=== PATIENT | male | born 1975 | race Caucasian/White ===

== ENCOUNTER 2017-09-07 03:00 | Inpatient (IN) | payer OTHER ==
[~2017-09-07] VITALS: Ht 185.4 cm; Wt 72.0 kg
[2017-09-07] MEDS ORDERED: SODIUM CHLORIDE 0.9% 1000ML 1,000 ML IV STA ×2 (03:06)
[2017-09-07] MEDS ORDERED: LORAZEPAM 2 MG/ML 1 ML VIAL IV STA ×2 (03:22→03:50)
[2017-09-07 03:24] LABS: BASO % 0.5 %; BASO ABS # 0.03 K/uL (0-0.2); EOS % 2.3 %; EOS ABS # 0.15 K/uL (0-0.5); HEMATOCRIT 45.5 % (42-52); HEMOGLOBIN 15.8 g/dL (14.0-18.0); IG# 0.01 K/uL (0.00-0.02); LYMPH % 34.9 %; LYMPH ABS # 2.29 K/uL (1.2-3.4); MEAN CELL VOLUME 92.7 fL (80-100); MEAN CORPUSCULAR HEMOGLOBIN 32.2 pg (25-34); MEAN CORPUSCULAR HGB CONC 34.7 g/dl (32-36); MEAN PLATELET VOLUME 10.3 fL (7.4-10.4); MONO % 9.8 %; MONO ABS # 0.64 K/uL (0.11-0.59); NEUT % 52.3 %; NEUT ABS # 3.44 K/uL (1.4-6.5); PLATELET COUNT 242 K/uL (130-400); RED CELL DISTRIBUTION WIDTH CV 13.1 % (11.5-14.5); RED CELL DISTRIBUTION WIDTH SD 44.7 fL (36.4-46.3); WHITE BLOOD COUNT 6.56 K/uL (4.8-10.8)
--- NOTE | 2017-09-07 03:30 | EMERGENCY ROOM VISIT NOTE ---
History Report prepared by Marilou: Haile Quintana Under the Supervision of: Dr. Julissa Gonzalez M.D. First contact with patient: 03:06 Chief Complaint: OVERDOSE (INTENTIONAL) Stated Complaint: OVERDOSE ON SLEEPING PILLS - TOOK 98 1/2 History of Present Illness The patient is a 41 year old male who presents to the Emergency Room following an overdose prior to arrival, around 2 to 2:30 AM. The patient's significant other states that the patient consumed 98.5 tablets of Benadryl. She reports that she made the patient vomit, but denies seeing any pill fragments. She states that he did not take Tylenol. She notes that the patient told her that he was trying to hurt himself. She reports a history of suicide attempts by the patient and states that she thinks he was an inpatient for psychiatry in the past. She states that this episode was prompted by a realization 3 days ago of something that happened in his past. She states that the patient smokes a pack of cigarettes in a day, has not used marijuana in a while, and occasionally drinks alcohol. Source of History: spouse/significant other History Limited By: AMS Onset: prior to arrival Position: other (global) Symptom Intensity: 98.5 tablets Benadryl Quality: other (overdose) Review of Systems ROS limited due to altered mental status. Past Medical & Surgical Medical Problems: (1) Intentional diphenhydramine overdose limited: fiance reported previous mental health admissions/ suicide attempt Family History Patient reports no known family medical history. Social History Smoking Status: Current Every Day Smoker Marital Status: in relationship Housing Status: lives with significant other Occupation Status: employed Current/Historical Medications Scheduled Sertraline (Zoloft), 100 MG PO DAILY Allergies Coded Allergies: No Known Allergies (Unverified , 09/07/17) Physical Exam Vital Signs Date Time Temp Pulse Resp B/P (MAP) Pulse Ox O2 Delivery O2 Flow Rate FiO2 09/07/17 05:13 83 18 139/93 98 Room Air 09/07/17 04:19 98 18 168/120 98 Room Air 09/07/17 03:43 107 09/07/17 03:03 36.7 137 18 147/99 98 Room Air Physical Exam Vital signs reviewed. General: Awake, seemingly agitated, staring into the distance. HEENT: No scleral icterus, PERRLA, neck supple. Atraumatic. Dilated pupils. Dry MM Cardiovascular: Tachycardic rate and regular rhythm, no extra sounds. Pulmonary: Clear to auscultation bilaterally, normal work of breathing. Abdomen: Soft, nontender, nondistended, positive bowel sounds. Musculoskeletal: Atraumatic, no peripheral edema. Neurologic: Patient awake. Full strength in all 4 extremities. Cranial nerves 2 through 12 grossly intact. unable to focus on complicated discussion. Follows some simple commands. Minimally verbal. Skin: Warm, dry, no rash Medical Decision & Procedures Laboratory Results Test 09/07/17 03:14 09/07/17 04:06 Magnesium Level 2.2 mg/dl (1.8-2.4) Direct Bilirubin 0.1 mg/dl (0-0.2) Thyroid Stimulating Hormone (TSH) 1.880 uIu/ml (0.300-4.500) Salicylates Level 3.1 mg/dl (2.8-20) Acetaminophen Level < 2 ug/ml (10-30) Ethyl Alcohol mg/dL < 3.0 mg/dl (0-3) Urine Color YELLOW Urine Appearance CLEAR (CLEAR) Urine pH 7.5 (4.5-7.5) Urine Specific [place] 1.010 (1.000-1.030) Urine Protein NEG (NEG) Urine Glucose (UA) NEG (NEG) Urine Ketones NEG (NEG) Urine Occult Blood NEG (NEG) Urine Nitrite NEG (NEG) Urine Bilirubin NEG (NEG) Urine Urobilinogen NEG (NEG) Urine Leukocyte Esterase NEG (NEG) Urine Opiates Screen NEG (NEG) Urine Methadone, Qualitative NEG (NEG) Urine Barbiturates NEG (NEG) Urine Phencyclidine (PCP) Level NEG (NEG) Ur Amphetamine/Methamphetamine NEG (NEG) MDMA (Ecstasy) Screen NEG (NEG) Urine Benzodiazepines Screen NEG (NEG) Urine Cocaine Metabolite NEG (NEG) Urine Marijuana (THC) NEG (NEG) Laboratory results per my review. Medications Administered Medications (Trade) Dose Ordered Sig/Elizabeth Route Start Time Stop Time Status Last Admin Dose Admin Sodium Chloride 1,000 ml @ 999 mls/hr Q1H1M STAT IV 09/07/17 03:06 09/07/17 04:06 DC 09/07/17 03:11 999 MLS/HR Sodium Chloride 1,000 ml @ 150 mls/hr Q6H40M STAT IV 09/07/17 03:06 09/07/17 06:30 DC 09/07/17 03:25 150 MLS/HR Lorazepam (Ativan Inj) 2 mg NOW STAT IV 09/07/17 03:22 09/07/17 03:23 DC 09/07/17 03:33 2 MG Lorazepam (Ativan Inj) 2 mg NOW STAT IV 09/07/17 03:50 09/07/17 03:51 DC 09/07/17 04:07 2 MG Lorazepam (Ativan Inj) 2 mg Q30M PRN IV 09/07/17 04:45 09/07/17 06:31 DC 09/07/17 06:30 2 MG ECG Per My Interpretation Indication: other (overdose) Rate (beats per minute): 120 Rhythm: sinus tachycardia Findings: other (ST abnormalities in inferior lateral leads. T wave abnormalities in anterior leads. QRS is 92. QTC is 472.) ED Course 0321: Past medical records reviewed. The patient was evaluated in room A12B. A complete history and physical examination was performed. 0415: I spoke with Dr. Thacker - [facility] Hospitalist. He will reevaluate the patient for admission. 0509: I checked on the patient, who seems to be doing well. 0520: Repeat EKG shows normal sinus rhythm of 82 with QRS of 98 and QTC of 497. No ectopy and no acute ischemic changes. Medical Decision Differential diagnosis: Etiologies such as toxicologic, infection, hypoglycemia, electrolyte abnormalities, cardiac sources, intracerebral event, neurologic, as well as others were entertained. This patient was evaluated and appeared to be in no distress. Patient is able to maintain his airway however is intermittently following commands. IV access was obtained and laboratory work was drawn. Patient was hydrated with normal saline solution. He had typical anticholinergic effects on presentation. Patient was given 2 mg of IV Ativan. Poison control was contacted. They recommended bicarb for prolonged QRS according to nursing staff. Patient remained stable and did improve after IV hydration and as needed Ativan. His laboratory work is fairly unrevealing. EKG remained stable. The patient has admitted to his fiance that this was a suicide attempt. He is not able to answer questions appropriately at this time. Internal medicine was consulted and the patient will be evaluated for telemetry. Medication Reconcilliation Current Medication List: was personally reviewed by me Blood Pressure Screening Patient's blood pressure: Elevated blood pressure Blood pressure disposition: Elevated BP felt to be situational referred to hospitalist Consults Time Called: [phone] Consulting Physician: Dr. Kirstie Matthews [facility] Hospitalist Returned Call: [phone] Kirstie Matthews [facility]. He will reevaluate the patient for admission. Impression Primary Impression: Medication overdose Additional Impression: Suicidal behavior Critical Care I have personally spent greater than 60 minutes of critical care time in the direct management of this patient. This includes bedside care, interpretation of diagnostic studies, and testing, discussion with consultants, patient, and family members, and other required patient management activities. This 60 minutes is in excess of all separately billable procedures. Scribe Attestation The scribe's documentation has been prepared under my direction and personally reviewed by me in its entirety. I confirm that the note above accurately reflects all work, treatment, procedures, and medical decision making performed by me. Departure Information Dispostion Being Evaluated By Hospitalist Referrals No Doctor, Assigned (PCP) Patient Instructions My [facility] Problem Qualifiers
[2017-09-07 03:52] LABS: ALBUMIN 4.3 gm/dl (3.4-5.0); CALCIUM 8.5 mg/dl (8.5-10.1); CREATININE 1.25 mg/dl (0.60-1.40); POTASSIUM 3.3 mmol/L (3.5-5.1); TOTAL PROTEIN 7.6 gm/dl (6.4-8.2)
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
[2017-09-07] MEDS ORDERED: SERT-234 PO (04:35)
[2017-09-07] MEDS ORDERED: ONDANSETRON INJ 2 MG/ML 2 ML VIAL IV PRN (04:45)
[2017-09-07] MEDS: LORAZEPAM 2 MG/ML 1 ML VIAL IV PRN ×4 (05:33→16:07)
[2017-09-07 06:31] VITALS: BP 148/105; PULSE 84; TEMP 36.8; O2SAT 100; Ht 185.4 cm; Wt 72.0 kg
[2017-09-07] MEDS: SODIUM CHLORIDE 0.9% 1000ML 1,000 ML IV SCH ×2 (06:41→16:07)
[2017-09-07 08:01] VITALS: BP_SYST 119; BP_SYST 148; BP_DIAS 71; BP_DIAS 93; PULSE 70; TEMP 36.6; O2SAT 94
--- NOTE | 2017-09-07 08:03 | Family Medicine Progress Note ---
Progress Note Date of Service Sep 07, 2017. Subjective Pt evaluation today including: conversation w/ family, physical exam, chart review, lab review Pain: not able to assess PO Intake: Not eating Patient was not conscious for my examination, although he did briefly sit up and open his eyes. was somewhat responsive to stimuli. Frequent twitching was noted. Spoke with angel, reassured her she did nothing wrong. Found out was not Benadryl overdose but [employer] brand sleep aid come in a blue bottle active ingredient is diphenhydramine Constitutional: No fever, No chills Respiratory: No cough, No sputum, No wheezing, No shortness of breath Cardiovascular: No chest pain Abdomen: No pain Musculoskeletal: No joint pain Psychiatric: + depression symptoms Heme: No abnormal bleeding/bruising Skin: No rash, No itch, No new/changing skin lesions Additional Comments: Angel was the historian Medications Current Inpatient Medications Medications (Trade) Dose Ordered Sig/Elizabeth Route Start Time Stop Time Status Last Admin Dose Admin Enoxaparin Sodium (Lovenox Inj) 40 mg Q24H SC 09/07/17 04:45 10/07/17 04:44 UNV Sodium Chloride 1,000 ml @ 115 mls/hr Q8H42M IV 09/07/17 06:35 10/07/17 06:34 09/07/17 06:41 115 MLS/HR Ondansetron HCl (Zofran Inj) 4 mg Q6H PRN IV 09/07/17 04:45 10/07/17 04:44 Objective Vital Signs Date Time Temp Pulse Resp B/P (MAP) Pulse Ox O2 Delivery O2 Flow Rate FiO2 09/07/17 06:31 36.8 84 20 148/105 100 Room Air 09/07/17 05:47 36.6 80 18 140/90 98 Room Air 09/07/17 05:13 83 18 139/93 98 Room Air 09/07/17 04:19 98 18 168/120 98 Room Air 09/07/17 03:43 107 09/07/17 03:03 36.7 137 18 147/99 98 Room Air Physical Exam General Appearance: + moderate distress (patient would have occasional flailing episodes, However seemed to be regaining consciousness), + thin Neck: supple, no adenopathy, trachea midline Respiratory/Chest: chest non-tender, no respiratory distress, no accessory muscle use Cardiovascular: regular rate, rhythm, no edema, no gallop, no JVD, no murmur Abdomen: normal bowel sounds, soft, no organomegaly, no pulsatile mass, + tenderness (in the lower quadrents b/l winced during the exam) Extremities: no pedal edema Neurologic/Psychiatric: + pertinent finding (Seems to be returning to consciousness) Skin: normal color, warm/dry, no rash Lymphatic: no adenopathy Laboratory Results Last Resulted 09/07/17 03:14 Red Blood Count 4.91, Mean Corpuscular Volume 92.7, Mean Corpuscular Hemoglobin 32.2, Mean Corpuscular Hemoglobin Concent 34.7, Mean Platelet Volume 10.3, Neutrophils (%) (Auto) 52.3, Lymphocytes (%) (Auto) 34.9, Monocytes (%) (Auto) 9.8, Eosinophils (%) (Auto) 2.3, Basophils (%) (Auto) 0.5, Neutrophils # (Auto) 3.44, Lymphocytes # (Auto) 2.29, Monocytes # (Auto) 0.64, Eosinophils # (Auto) 0.15, Basophils # (Auto) 0.03 Last Resulted 09/07/17 03:14 Past 24 Hours Test 09/07/17 07:01 Range/Units Prothromb Time International Ratio 1.0 0.9-1.1 Prothrombin Time 10.9 9.0-12.0 SECONDS Assessment and Plan 41 yo M w/ PMHx of PTSD on Zoloft following with psychiatrist, therapy, p/w Intentional Overdose of 98.5 Diphenhydramine pills arriving tachycardic , in acute delirium Intentional Diphendydramine overdose, Acute Delirium, H/o PTSD - anticholinergic poisoning secondary to diphenhydramine overdose ( 98.5 pills) - s/p 2 L IV NS in ED - s/p 2mg Ativan x 2 ( recommended by Poison Control) - no seizure activity , maintaining airway, appears to be retuning to consciousness - HOLD home SSRI - Start IV NS at 100 mls/hr - Q2H Neuro checks - followup Psychiatry - F/U with poison control - Telemetry: NSR 70-80 DVT PPX: Lovenox Disp: Admit to Tele, D/C when better Home vs. inpatient psych, appreciate psych input Code: FULL Resident Physician Supervision Note: I interviewed and examined the patient. Discussed with Dr. Covington and agree with findings and plan as documented in the note. Any exceptions or clarifications are listed here: None Documented By: Kilo Betancourt moving more but still confused and moving randomly fiance does note he is doing better than before QT improved vitals noted, random movements but does speak some diphenhydramine OD -QT improved -ativan per poison control, supportive care -inpt psych once mental status allows -otherwise as above Continued [facility] stay due to: abnormal vital signs Discharge planning: other (Home vs. Inpatient psych ) Resident Tracking Resident Involvement: Resident Care Provided Care Provided: Adult Hospital Medicine
[2017-09-07] MEDS: ENOXAPARIN 40 MG/0.4 ML SYR SC SCH (09:45)
--- NOTE | 2017-09-07 11:55 | Psychiatric Consultation ---
Psychiatric Consultation Date of Service: Sep 07, 2017. Patient admitted following an intentional toxic ingestion of benadryl in a suicide attempt. Patient experiencing an anticholinergic delirium and not yet appropriate to be interviewed. We will attempt tomorrow. The patient should not be allowed to leave the hospital AMA, as he will be 302'd if not willing to receive voluntary inpatient mental health treatment.
[2017-09-07 12:18] VITALS: BP 139/87; PULSE 74; TEMP 36.5; O2SAT 93
[2017-09-07] MEDS ORDERED: POTASSIUM CHLORIDE 20 MEQ TABCR PO STA (15:33)
[2017-09-07] MEDS ORDERED: LORAZEPAM 2 MG/ML 1 ML VIAL IV PRN (16:00)
[2017-09-07 16:41] VITALS: BP 155/98; PULSE 71; TEMP 36.8; O2SAT 98
[2017-09-07] MEDS ORDERED: LORAZEPAM INJ 2 MG in SYRINGE 1 ML IV PRN (16:45)
[2017-09-07] MEDS: POTASSIUM CHLR 10 MEQ / WTR 100 ML IV SCH ×2 (17:27→18:19)
[2017-09-07 19:14] VITALS: BP 150/93; PULSE 63; TEMP 36.7; O2SAT 95
[2017-09-08] VITALS (7 sets, daily range): BP systolic 121–147; BP diastolic 74–87; PULSE 53–83; TEMP 36.5–37.1; O2SAT 97–99
[2017-09-08] MEDS: SODIUM CHLORIDE 0.9% 1000ML 1,000 ML IV SCH ×3 (00:15→20:12)
[2017-09-08 07:29] LABS: BASO % 0.2 %; BASO ABS # 0.01 K/uL (0-0.2); EOS % 2.8 %; EOS ABS # 0.14 K/uL (0-0.5); HEMOGLOBIN 15.4 g/dL (14.0-18.0); IG# 0.02 K/uL (0.00-0.02); LYMPH % 33.7 %; LYMPH ABS # 1.67 K/uL (1.2-3.4); MEAN CELL VOLUME 94.1 fL (80-100); MEAN CORPUSCULAR HEMOGLOBIN 32.2 pg (25-34); MEAN CORPUSCULAR HGB CONC 34.2 g/dl (32-36); MEAN PLATELET VOLUME 10.6 fL (7.4-10.4); MONO % 10.5 %; MONO ABS # 0.52 K/uL (0.11-0.59); NEUT % 52.4 %; NEUT ABS # 2.59 K/uL (1.4-6.5); PLATELET COUNT 217 K/uL (130-400); RED CELL DISTRIBUTION WIDTH CV 13.3 % (11.5-14.5); WHITE BLOOD COUNT 4.95 K/uL (4.8-10.8)
[2017-09-08 08:07] LABS: ALBUMIN 4.1 gm/dl (3.4-5.0); CALCIUM 8.8 mg/dl (8.5-10.1); CREATININE 1.07 mg/dl (0.60-1.40); TOTAL PROTEIN 6.6 gm/dl (6.4-8.2)
[2017-09-08] MEDS: ENOXAPARIN 40 MG/0.4 ML SYR SC SCH (08:14)
[2017-09-08] MEDS: NICOTINE 21 MG/24 HR TDSY TD SCH ×2 (08:14→08:16)
--- NOTE | 2017-09-08 08:26 | Family Medicine Progress Note ---
Progress Note Date of Service Sep 08, 2017. Subjective Pt evaluation today including: conversation w/ family Pain: unable to assess PO Intake: tolerating Patient was sleeping during the interview. Angel was the historian. No complaints overnight, had a bm. Refused nicotine patch. Additional Comments: Pt angel was historian Medications Current Inpatient Medications Medications (Trade) Dose Ordered Sig/Elizabeth Route Start Time Stop Time Status Last Admin Dose Admin Enoxaparin Sodium (Lovenox Inj) 40 mg Q24H SC 09/07/17 09:00 10/07/17 08:59 09/08/17 08:14 40 MG Sodium Chloride 1,000 ml @ 115 mls/hr Q8H42M IV 09/07/17 06:35 10/07/17 06:34 09/08/17 08:13 115 MLS/HR Ondansetron HCl (Zofran Inj) 4 mg Q6H PRN IV 09/07/17 04:45 10/07/17 04:44 Nicotine (Nicoderm Cq 21MG Patch) 1 patch QAM TD 09/08/17 09:00 10/08/17 08:59 Miscellaneous (Remove Nicoderm Patch) 1 ea HS N/A 09/07/17 21:00 10/07/17 20:59 Lorazepam (Ativan Inj) 2 mg Q4H PRN IV 09/07/17 16:00 09/11/17 16:00 09/07/17 18:18 2 MG Lorazepam 2 mg/ Syringe 2 ml @ 1 mls/min Q4H PRN IV 09/07/17 16:45 10/07/17 16:44 Objective Vital Signs Date Time Temp Pulse Resp B/P (MAP) Pulse Ox O2 Delivery O2 Flow Rate FiO2 09/08/17 07:18 36.7 54 18 128/80 (96) 98 Room Air 09/08/17 03:09 36.5 53 18 147/87 (107) 99 Room Air 09/07/17 20:00 Room Air 09/07/17 19:14 36.7 63 18 150/93 (112) 95 Room Air 09/07/17 16:41 36.8 71 18 155/98 (117) 98 Room Air 09/07/17 12:18 36.5 74 16 139/87 (104) 93 Physical Exam General Appearance: WD/WN, no apparent distress Neurologic/Psychiatric: + pertinent finding (sleepling chroeaiform movements have subsided) Skin: normal color Laboratory Results Last Resulted 09/08/17 06:55 Red Blood Count 4.78, Mean Corpuscular Volume 94.1, Mean Corpuscular Hemoglobin 32.2, Mean Corpuscular Hemoglobin Concent 34.2, Mean Platelet Volume 10.6, Neutrophils (%) (Auto) 52.4, Lymphocytes (%) (Auto) 33.7, Monocytes (%) (Auto) 10.5, Eosinophils (%) (Auto) 2.8, Basophils (%) (Auto) 0.2, Neutrophils # (Auto ) 2.59, Lymphocytes # (Auto) 1.67, Monocytes # (Auto) 0.52, Eosinophils # (Auto ) 0.14, Basophils # (Auto) 0.01 Last Resulted 09/08/17 06:55 Results Past 24 Hours Test 09/08/17 06:55 Range/Units White Blood Count 4.95 4.8-10.8 K/uL Red Blood Count 4.78 4.7-6.1 M/uL Hemoglobin 15.4 14.0-18.0 g/dL Hematocrit 45.0 42-52 % Mean Corpuscular Volume 94.1 80-100 fL Mean Corpuscular Hemoglobin 32.2 25-34 pg Mean Corpuscular Hemoglobin Concent 34.2 32-36 g/dl Platelet Count 217 130-400 K/uL Mean Platelet Volume 10.6 7.4-10.4 fL Neutrophils (%) (Auto) 52.4 % Lymphocytes (%) (Auto) 33.7 % Monocytes (%) (Auto) 10.5 % Eosinophils (%) (Auto) 2.8 % Basophils (%) (Auto) 0.2 % Neutrophils # (Auto) 2.59 1.4-6.5 K/uL Lymphocytes # (Auto) 1.67 1.2-3.4 K/uL Monocytes # (Auto) 0.52 0.11-0.59 K/uL Eosinophils # (Auto) 0.14 0-0.5 K/uL Basophils # (Auto) 0.01 0-0.2 K/uL RDW Standard Deviation 46.0 36.4-46.3 fL RDW Coefficient of Variation 13.3 11.5-14.5 % Immature Granulocyte % (Auto) 0.4 % Immature Granulocyte # (Auto) 0.02 0.00-0.02 K/uL Sodium Level 139 136-145 mmol/L Potassium Level 4.0 3.5-5.1 mmol/L Chloride Level 108 98-107 mmol/L Carbon Dioxide Level 26 21-32 mmol/L Anion Gap 5.0 3-11 mmol/L Blood Urea Nitrogen 10 7-18 mg/dl Creatinine 1.07 0.60-1.40 mg/dl Est Creatinine Clear Calc Drug Dose 91.6 ml/min Estimated GFR () 98.7 Estimated GFR (Non- 85.2 BUN/Creatinine Ratio 9.1 10-20 Random Glucose 75 70-99 mg/dl Calcium Level 8.8 8.5-10.1 mg/dl Total Bilirubin 0.8 0.2-1 mg/dl Aspartate Amino Transf (AST/SGOT) 14 15-37 U/L Alanine Aminotransferase (ALT/SGPT) 17 12-78 U/L Alkaline Phosphatase 43 45-117 U/L Total Protein 6.6 6.4-8.2 gm/dl Albumin 4.1 3.4-5.0 gm/dl Globulin 2.5 2.5-4.0 gm/dl Albumin/Globulin Ratio 1.7 0.9-2 Assessment and Plan 41 yo M w/ PMHx of PTSD on Zoloft following with psychiatrist, therapy, p/w Intentional Overdose of 98.5 Diphenhydramine pills arriving tachycardic , in acute delirium Intentional Diphendydramine overdose, Acute Delirium, H/o PTSD - anticholinergic poisoning secondary to diphenhydramine overdose ( 98.5 pills) - Lorzapam prn per poison control - no seizure activity , maintaining airway, appears to be retuning to consciousness - HOLD home SSRI - Start IV NS at 100 mls/hr - Q2H Neuro checks - Psychiatry following -Monitor pt condition, patients with an AC overdose may end up on a ventilator on day 3 - F/U with poison control - Telemetry: NSR 70-80 - QTc improved - Pt should not be permitted to leave the facility under any circumstances. - Call security if patient attempting to leave; psychiatric liaison nurse can also be of assistance DVT PPX: Lovenox Disp: Admit to Tele, D/C to inpatient psych Code: FULL Resident Physician Supervision Note: I interviewed and examined the patient. Discussed with Dr. Covington and agree with findings and plan as documented in the note. Any exceptions or clarifications are listed here: None Documented By: Kilo Betancourt sleeping and still poor mentation when i saw this AM apparently waking more through the day vitals noted nad breathing unlabored benadryl OD -concern high for SI -QT shortened -awaiting mental status and motor function improvement to be safe for inpt psych otherwise as above Continued [facility] stay due to: other (302 by psych) Discharge planning: other (Inpatient Psych) Resident Tracking Resident Involvement: Resident Care Provided Care Provided: Adult Hospital Medicine
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
[2017-09-09 03:11] VITALS: BP 115/69; PULSE 60; TEMP 36.9; O2SAT 99
[2017-09-09] MEDS: SODIUM CHLORIDE 0.9% 1000ML 1,000 ML IV SCH ×4 (04:50→21:59)
[2017-09-09 05:47] LABS: BASO % 0.3 %; BASO ABS # 0.02 K/uL (0-0.2); EOS ABS # 0.13 K/uL (0-0.5); HEMATOCRIT 43.5 % (42-52); HEMOGLOBIN 14.8 g/dL (14.0-18.0); IG# 0.02 K/uL (0.00-0.02); LYMPH % 27.8 %; LYMPH ABS # 1.81 K/uL (1.2-3.4); MEAN CELL VOLUME 93.1 fL (80-100); MEAN CORPUSCULAR HEMOGLOBIN 31.7 pg (25-34); MEAN PLATELET VOLUME 10.5 fL (7.4-10.4); MONO % 8.6 %; MONO ABS # 0.56 K/uL (0.11-0.59); NEUT ABS # 3.97 K/uL (1.4-6.5); PLATELET COUNT 208 K/uL (130-400); RED CELL DISTRIBUTION WIDTH SD 44.1 fL (36.4-46.3); WHITE BLOOD COUNT 6.51 K/uL (4.8-10.8)
[2017-09-09 06:14] LABS: ALBUMIN 3.8 gm/dl (3.4-5.0); CREATININE 1.29 mg/dl (0.60-1.40); TOTAL PROTEIN 6.5 gm/dl (6.4-8.2)
--- NOTE | 2017-09-09 07:16 | Family Medicine Progress Note ---
Progress Note Date of Service Sep 09, 2017. Subjective Pt evaluation today including: conversation w/ patient Pain: 0/10 PO Intake: tolerating Voiding: no voiding problems Patient has regained consciousness questioning about dipo planning Additional Comments: Deferred Medications Current Inpatient Medications Medications (Trade) Dose Ordered Sig/Eilzabeth Route Start Time Stop Time Status Last Admin Dose Admin Enoxaparin Sodium (Lovenox Inj) 40 mg Q24H SC 09/07/17 09:00 10/07/17 08:59 09/08/17 08:14 40 MG Sodium Chloride 1,000 ml @ 115 mls/hr Q8H42M IV 09/07/17 06:35 10/07/17 06:34 09/09/17 04:50 115 MLS/HR Ondansetron HCl (Zofran Inj) 4 mg Q6H PRN IV 09/07/17 04:45 10/07/17 04:44 Nicotine (Nicoderm Cq 21MG Patch) 1 patch QAM TD 09/08/17 09:00 10/08/17 08:59 Miscellaneous (Remove Nicoderm Patch) 1 ea HS N/A 09/07/17 21:00 10/07/17 20:59 Lorazepam (Ativan Inj) 2 mg Q4H PRN IV 09/07/17 16:00 09/11/17 16:00 09/07/17 18:18 2 MG Lorazepam 2 mg/ Syringe 2 ml @ 1 mls/min Q4H PRN IV 09/07/17 16:45 10/07/17 16:44 Objective Vital Signs Date Time Temp Pulse Resp B/P (MAP) Pulse Ox O2 Delivery O2 Flow Rate FiO2 09/09/17 03:11 36.9 60 18 115/69 (84) 99 Room Air 09/08/17 23:15 99 Room Air 09/08/17 23:05 37.1 77 18 138/86 (103) 99 Room Air 09/08/17 19:35 37.1 83 20 122/81 (95) 98 Room Air 09/08/17 16:00 Room Air 09/08/17 15:43 37.1 66 18 121/74 (90) 97 Room Air 09/08/17 11:04 37.0 58 16 139/78 (98) 98 Room Air 09/08/17 07:18 36.7 54 18 128/80 (96) 98 Room Air Physical Exam Notes: Deferred Laboratory Results Results Past 24 Hours Test 09/09/17 05:19 Range/Units White Blood Count 6.51 4.8-10.8 K/uL Red Blood Count 4.67 4.7-6.1 M/uL Hemoglobin 14.8 14.0-18.0 g/dL Hematocrit 43.5 42-52 % Mean Corpuscular Volume 93.1 80-100 fL Mean Corpuscular Hemoglobin 31.7 25-34 pg Mean Corpuscular Hemoglobin Concent 34.0 32-36 g/dl Platelet Count 208 130-400 K/uL Mean Platelet Volume 10.5 7.4-10.4 fL Neutrophils (%) (Auto) 61.0 % Lymphocytes (%) (Auto) 27.8 % Monocytes (%) (Auto) 8.6 % Eosinophils (%) (Auto) 2.0 % Basophils (%) (Auto) 0.3 % Neutrophils # (Auto) 3.97 1.4-6.5 K/uL Lymphocytes # (Auto) 1.81 1.2-3.4 K/uL Monocytes # (Auto) 0.56 0.11-0.59 K/uL Eosinophils # (Auto) 0.13 0-0.5 K/uL Basophils # (Auto) 0.02 0-0.2 K/uL RDW Standard Deviation 44.1 36.4-46.3 fL RDW Coefficient of Variation 13.0 11.5-14.5 % Immature Granulocyte % (Auto) 0.3 % Immature Granulocyte # (Auto) 0.02 0.00-0.02 K/uL Sodium Level 141 136-145 mmol/L Potassium Level 4.0 3.5-5.1 mmol/L Chloride Level 109 98-107 mmol/L Carbon Dioxide Level 28 21-32 mmol/L Anion Gap 4.0 3-11 mmol/L Creatinine 1.29 0.60-1.40 mg/dl Est Creatinine Clear Calc Drug Dose 76.0 ml/min Estimated GFR () 78.7 Estimated GFR (Non- 67.9 BUN/Creatinine Ratio 13.0 10-20 Random Glucose 83 70-99 mg/dl Calcium Level 8.0 8.5-10.1 mg/dl Total Bilirubin 0.6 0.2-1 mg/dl Aspartate Amino Transf (AST/SGOT) 10 15-37 U/L Alanine Aminotransferase (ALT/SGPT) 17 12-78 U/L Alkaline Phosphatase 48 45-117 U/L Total Protein 6.5 6.4-8.2 gm/dl Albumin 3.8 3.4-5.0 gm/dl Globulin 2.7 2.5-4.0 gm/dl Albumin/Globulin Ratio 1.4 0.9-2 Assessment and Plan 41 yo M w/ PMHx of PTSD on Zoloft following with psychiatrist, therapy, p/w Intentional Overdose of 98.5 Diphenhydramine pills arriving tachycardic , in acute delirium Intentional Diphendydramine overdose, Acute Delirium, H/o PTSD - anticholinergic poisoning secondary to diphenhydramine overdose ( 98.5 pills) - Lorzapam prn per poison control - no seizure activity , maintaining airway, conscious again - HOLD home SSRI - Start IV NS at 100 mls/hr - On 1 to 1 - Psychiatry following -Monitor pt condition, patients with an AC overdose may end up on a ventilator on day 3 - Telemetry: NSR 70-80 - QTc improved - Aweaitng Placement - Pt should not be permitted to leave the facility under any circumstances. - Call security if patient attempting to leave; psychiatric liaison nurse can also be of assistance DVT PPX: Lovenox Disp: Admit to Tele, D/C to inpatient psych Code: FULL Continued [facility] stay due to: other (awaiting placement) Discharge planning: other (inpatient Psych) Resident Tracking Resident Involvement: Resident Care Provided Care Provided: Adult Hospital Medicine
[2017-09-09] MEDS: NICOTINE 21 MG/24 HR TDSY TD SCH (07:22)
[2017-09-09] MEDS: ENOXAPARIN 40 MG/0.4 ML SYR SC SCH (07:22)
[2017-09-09 07:38] VITALS: BP 127/81; PULSE 66; TEMP 36.8; O2SAT 98
[2017-09-09 11:01] VITALS: BP 127/73; PULSE 84; TEMP 37; O2SAT 98
[2017-09-09 15:17] VITALS: BP 146/80; PULSE 69; TEMP 37; O2SAT 98
[2017-09-09 18:49] VITALS: BP 127/78; PULSE 60; TEMP 37; O2SAT 98
--- NOTE | 2017-09-09 18:56 | Discharge Instructions ---
Discharge Instructions Date of Service Sep 09, 2017. Admission Reason for Admission: Intentional Diphenhydramine Overdose Discharge Discharge Diagnosis / Problem: Diphenhydramine Discharge Goals Goal(s): Improve function Activity Recommendations Activity Limitations: resume your previous activity . Instructions / Follow-Up Instructions / Follow-Up Care per psych 1 yo M w/ PMHx of PTSD on Zoloft following with psychiatrist, therapy, p/w Intentional Overdose of 98.5 Diphenhydramine pills arriving tachycardic , in acute delirium Intentional Diphendydramine overdose, Acute Delirium, H/o PTSD - anticholinergic poisoning secondary to diphenhydramine overdose ( 98.5 pills) - Lorzapam prn per poison control - no seizure activity , maintaining airway, conscious again - HOLD home SSRI - Start IV NS at 100 mls/hr - On 1 to 1 - Psychiatry following -Monitor pt condition, patients with an AC overdose may end up on a ventilator on day 3 - Telemetry: NSR 70-80 - QTc improved - Aweaitng Placement - Pt should not be permitted to leave the facility under any circumstances. - Call security if patient attempting to leave; psychiatric liaison nurse can also be of assistance DVT PPX: Lovenox Disp: Admit to Tele, D/C to inpatient psych Code: FULL Current Hospital Diet Patient's current hospital diet: Regular Diet Discharge Diet Recommended Diet: Regular Diet Pending Studies Studies pending at discharge: no Medical Emergencies . Who to Call and When: Medical Emergencies: If at any time you feel your situation is an emergency, please call 911 immediately. . Non-Emergent Contact Non-Emergency issues call your: Primary Care Provider . . "Provider Documentation" section prepared by Jose Covington. . Resident Tracking Resident Involvement: Resident Care Provided Care Provided: Adult Hospital Medicine
[2017-09-09 20:00] VITALS: O2SAT 98
--- NOTE | 2017-09-10 18:32 | Discharge Summary ---
Discharge Summary Date of Service Sep 10, 2017. Discharge Summary Admission Date: Sep 07, 2017 at 05:25 Discharge Date: Sep 09, 2017 Discharge Disposition: Acute care mental health Principal Diagnosis: acute benadryl overdose Immunizations: Have You Had Influenza Vaccine: Unknown History of Tetanus Vaccine?: Unknown History of Pneumococcal: Unknown History of Hepatitis B Vaccine: Unknown Procedures: EKGs - QT progressively shortened back to normal Consultations: psych - recommended 302 for ongoing inpt psych treatment Medication Reconciliation Continued Medications: Sertraline (Zoloft) 100 Mg Tab 100 MG PO DAILY, TAB Discharge Exam Physical Exam: General Appearance: no apparent distress Eyes: EOMI ENT: hearing grossly normal Neck: trachea midline Respiratory/Chest: no respiratory distress, no accessory muscle use Extremities: normal inspection Neurologic/Psychiatric: 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 Discharge Instructions Please refer to the electronic Patient Visit Report (Discharge Instructions) for additional information.
== END 2017-09-09 23:37 | DRG 918 ==
LOC: C.EDB 03:01 → C.2T 05:25 → ENRESERV 05:35 → EDBEDREQ 06:03
PROVIDERS: ADMIT Hospitalist; ATTEND Family Medicine
DX: T45.0X2A Poisoning by antiallergic and antiemetic drugs, intentional self-harm, initial encounter (principal); F19.921 Other psychoactive substance use, unspecified with intoxication with delirium; R44.3 Hallucinations, unspecified; R25.9 Unspecified abnormal involuntary movements; F43.10 Post-traumatic stress disorder, unspecified; F17.210 Nicotine dependence, cigarettes, uncomplicated; Z51.81 Encounter for therapeutic drug level monitoring; Z79.899 Other long term (current) drug therapy; Z82.49 Family history of ischemic heart disease and other diseases of the circulatory system

== ENCOUNTER 2019-01-12 01:54 | Inpatient (IN) ==
[2019-01-12] MEDS: SODIUM CHLORIDE 0.9% 1000ML 1,000 ML IV SCH ×4 (02:30→22:42)
[2019-01-12 02:39] LABS: Basophils # (auto) 0.01 K/uL (0-0.2); Basophils % (auto) 0.1 %; Eosinophils # (auto) 0.02 K/uL (0-0.5); Eosinophils % (auto) 0.2 %; Hemoglobin 15.1 g/dL (14.0-18.0); Immature Granulocytes # (auto) 0.02 K/uL (0.00-0.02); Immature Granulocytes % (auto) 0.2 %; Lymphocytes # (auto) 1.12 K/uL (1.2-3.4); Lymphocytes % (auto) 9.7 %; Mean Corpuscular Hemoglobin 32.1 pg (25-34); Mean Corpuscular Hgb Conc 34.3 g/dL (32-36); Mean Corpuscular Volume 93.4 fL (80-100); Mean Platelet Volume 10.4 fL (7.4-10.4); Monocytes # (auto) 0.81 K/uL (0.11-0.59); Neutrophils # (auto) 9.58 K/uL (1.4-6.5); Neutrophils % (auto) 82.8 %; Platelet Count 193 K/uL (130-400); RDW Coefficient of Variation 13.6 % (11.5-14.5); RDW Standard Deviation 46.7 fL (36.4-46.3); Red Blood Count 4.71 M/uL (4.7-6.1); White Blood Count 11.56 K/uL (4.8-10.8)
[2019-01-12 02:58] LABS: Alanine Aminotransferase 18 U/L (12-78); Albumin Level 4.2 gm/dl (3.4-5.0); Aspartate Aminotransferase 25 U/L (15-37); BUN Creatinine Ratio 14.6 (10-20); Blood Urea Nitrogen 18 mg/dl (7-18); Calcium 9.1 mg/dl (8.5-10.1); Carbon Dioxide 29 mmol/L (21-32); Chloride 109 mmol/L (98-107); Est GFR (African American) 80.7; Est GFR (Non-African American) 69.6; Glucose 129 mg/dl (70-99); Lipase 152 U/L (73-393); Magnesium 2.1 mg/dl (1.8-2.4); Potassium 3.8 mmol/L (3.5-5.1); Sodium 143 mmol/L (136-145)
[2019-01-12 03:09] LABS: Albumin Globulin Ratio 1.4 (0.9-2); Alkaline Phosphatase 57 U/L (45-117); Bilirubin,Total 0.7 mg/dl (0.2-1); Globulin 3.1 gm/dl (2.5-4.0); NT Pro B Type Natriuretic Pept 19 pg/ml (0-450); Thyroid Stimulating Hormone 0.777 uIu/ml (0.300-4.500); Total Protein 7.3 gm/dl (6.4-8.2); Troponin I < 0.015 ng/ml (0-0.045)
[2019-01-12 03:47] LABS: Lyme Ab IgG w/WB Rflx Negative (Negative); Lyme Ab IgM w/WB Rflx Negative (Negative)
[2019-01-12 04:06] LABS: Appearance Urine Turbid (Clear); Bacteria Urine Automated Negative (Negative); Bilirubin Urine Negative (Negative); Blood Urine Negative (Negative); Color Urine Dark Yellow; Epithelial Cell Urine Auto >30 /lpf (0-5); Glucose Urine UA Negative (Negative); Ketones Urine Trace (Negative); Leukocyte Esterase Urine Negative (Negative); Nitrite Urine Negative (Negative); Protein Urine 2+ (Negative); RBC Urine Automated 0-4 /hpf (0-4); Specific Gravity Urine 1.025 (1.000-1.030); Urobilinogen Urine Negative (Negative)
[2019-01-12 04:22] LABS: Amphetamines+Metham, Urine Neg (Neg); Barbiturates, Urine Neg (Neg); Benzodiazepine, Urine Pos (Neg); Cocaine, Urine Neg (Neg); MDMA (Ecstacy), Urine Neg (Neg); Methadone, Urine Neg (Neg); Opiate, Urine Neg (Neg); Phencyclidine, Urine Neg (Neg)
[2019-01-12] MEDS ORDERED: SODIUM CHLORIDE 0.9% 1000ML 1,000 ML IV SCH (06:15)
--- NOTE | 2019-01-12 06:32 | XRay Report ---
XR chest 1V portable CLINICAL HISTORY: confusion mental status change COMPARISON STUDY: No previous studies for comparison. FINDINGS: The bones soft tissues and hemidiaphragms are normal. The cardiomediastinal silhouette is n ormal. The lungs are clear. The pulmonary vasculature is normal. IMPRESSION: Negative chest. The above report was generated using voice recognition software. It may contain grammatical, syntax or spelling errors. Electronically signed by: Cuba Allred M.D. 01/12/2019 6:31 AM
--- NOTE | 2019-01-12 08:06 | Emergency Department Note ---
Entered by Shahana Ng acting as a scribe for Ann Cam DO History of Present Illness General Chief complaint: Illness Stated complaint: ILL, SHAKY, NYSTAGMUS Time Seen by Provider: 01/12/19 01:59 Source: patient Mode of arrival: EMS History of Present Illness Onset (ago): hour(s) less than 1 Pain Consistency: + constant Relieved By: + none Exacerbated By: + medication Associated symptoms: + denies other symptoms (denies body aches), + confusion, + nausea/vomiting (negative vomiting) and + other (dizziness, shakiness, ) Treatments prior to arrival: none The patient is a 43 year old male who presents to the Emergency Room with complaints of confusion and shakiness after restarting medication. Via EMS, the patient has altered mental status, tachycardia, and nystagmus. He was picked up in a parking lot in [facility], when employees called the ambulance after noticing the patient sitting and shaking in his car for hours. When questioning the patient, he notes that he was driving around, and on his way back home, he took his medication for sleep, which caused him to feel sick. He stated he felt like he could not drive. He notes that he felt dizzy and shaky, along with some nausea. The patient is on Zoloft and Quetiapine, and had empty bottles of each with him. He reports that he had stopped taking his medication about 6 months ago, and recently decided to start back up at his previous doses. He denies a ches or alcohol use. Denies SI or intentional overdose. History of depression. Patient denies any trauma or injury. Denies any recent illness. Denies fevers chills, change in bowel or bladder function. Denies neck or back pain. Denies chest pain or trouble breathing. Home Medications Home Medications Medication Instructions Recorded Confirmed Type quetiapine 400 mg PO HS 01/12/19 01/12/19 History sertraline 100 mg PO DAILY 01/12/19 01/12/19 History Allergies Allergy/AdvReac Type Severity Reaction Status Date / Time No Known Allergies Allergy Verified 01/12/19 03:28 Past Med/Surg History Medical History Depression Intentional diphenhydramine overdose Surgical History No pertinent past surgical history Family History Father Hypertension Gout Other No pertinent family history in first degree relatives Social History Preferred Language: Argentine Communication Ability: Effective Beliefs That Will Affect Care: None Current Living Situation: Other Current Living Situation Comment: roommates Other Information That Helps Us Care for You: No Feels Safe at Home: Yes Safety Concerns: Feels Safe At This Time Smoking Status: Current every day smoker Tobacco Type: cigarettes ; Cigarettes Per Day: 20 ; Hx Alcohol Use: No Hx Substance Use: Yes substance use type: marijuana Last Used Substance: Days (ago) Review of Systems See HPI for pertinent positives & negatives. and A total of 10 systems reviewed and were otherwise negative Physical Exam Vital Signs Vital Signs - 24 hr 01/12/19 02:40 01/12/19 02:41 01/12/19 03:00 Pulse Rate 87 94 H 91 H Pulse Rate from SpO2 Sensor 88 90 Respiratory Rate 15 21 19 Blood Pressure 143/97 H 139/89 Blood Pressure Mean 103 106 Pulse Oximetry 100 98 Oxygen Delivery Method 01/12/19 03:01 01/12/19 03:30 01/12/19 03:31 Pulse Rate 88 89 87 Pulse Rate from SpO2 Sensor 88 89 87 Respiratory Rate 16 15 14 Blood Pressure 154/90 H Blood Pressure Mean 103 Pulse Oximetry 98 98 99 Oxygen Delivery Method 01/12/19 03:43 01/12/19 04:00 01/12/19 04:01 Pulse Rate 75 90 93 H Pulse Rate from SpO2 Sensor 79 90 93 H Respiratory Rate 18 18 27 H Blood Pressure 182/113 H 136/98 Blood Pressure Mean 118 104 Pulse Oximetry 97 97 97 Oxygen Delivery Method 01/12/19 04:30 01/12/19 04:31 01/12/19 04:39 Pulse Rate 89 83 92 H Pulse Rate from SpO2 Sensor 88 84 Respiratory Rate 18 15 19 Blood Pressure 154/99 H 173/104 H Blood Pressure Mean 112 114 Pulse Oximetry 97 97 Oxygen Delivery Method 01/12/19 05:00 01/12/19 05:01 01/12/19 05:30 Pulse Rate 85 87 90 Pulse Rate from SpO2 Sensor 89 Respiratory Rate 7 L 10 L 33 H Blood Pressure 145/102 H 138/96 Blood Pressure Mean 112 106 Pulse Oximetry 98 Oxygen Delivery Method 01/12/19 05:31 01/12/19 06:00 01/12/19 06:01 Pulse Rate 88 100 H 89 Pulse Rate from SpO2 Sensor Respiratory Rate 18 19 15 Blood Pressure 156/93 H Blood Pressure Mean 110 Pulse Oximetry Oxygen Delivery Method 01/12/19 06:30 01/12/19 06:31 01/12/19 07:37 Pulse Rate 92 H 86 101 H Pulse Rate from SpO2 Sensor 91 H 86 Respiratory Rate 15 9 L 16 Blood Pressure 158/102 H 157/93 H Blood Pressure Mean 121 114 Pulse Oximetry 97 99 98 Oxygen Delivery Method Room Air 01/12/19 08:00 01/12/19 09:00 Pulse Rate 88 86 Pulse Rate from SpO2 Sensor 93 H Respiratory Rate 16 18 Blood Pressure 133/90 129/88 Blood Pressure Mean 102 101 Pulse Oximetry 98 99 Oxygen Delivery Method Room Air Room Air GENERAL: alert, anxious, disheveled appearing, non-toxic EYE EXAM: normal conjunctiva, PERRL and EOM's grossly intact, no nystagmus OROPHARYNX: no exudate, no erythema, lips, buccal mucosa, and tongue normal and mucous membranes are moist NECK: supple, no nuchal rigidity, no adenopathy, non-tender LUNGS: Clear to auscultation. Normal chest wall mechanics, no w/r/r HEART: no murmurs, S1 normal and S2 normal ABDOMEN: abdomen soft, non-tender, normo-active bowel sounds, no masses, no rebound or guarding. BACK: Back is symmetrical on inspection and there is no deformity, no midline tenderness, no CVA tenderness. SKIN: no rashes and no bruising UPPER EXTREMITIES: upper extremities are grossly normal. FROM, nml pulses b/l. Mild intention tremor observed. LOWER EXTREMITIES: No pitting edema. FROM, nml pulses b/l. 2 beat clonus noted. NEURO EXAM: Normal sensorium, cranial nerves II-XII grossly intact, normal speech, no gross weakness of arms, no gross weakness of legs. Patient answers all questions of orientation appropriately, although is slow and delayed in getting to the correct answer and states he struggles to comprehend what people are saying and arrived at the correct answer. No facial droop. Ataxia noted with ambulation. No focal extremity weakness. Course Course 0204: The patient was evaluated in room B12B. A complete history and physical exam was performed. 0407: I rechecked on the patient. He says he feels fine as long as he lays down, but when he stands up and tries to walk he still feels weak and dizzy. 0745: Patient states still feels very unsteady and shaky with attempts at ambulation although it is slightly improved compared to prior attempt. States he still feels better lying down. Patient still complains of feeling "fuzzy". Pt is more alert now and able to answer questions more easily. 0804: Case discussed with Dr. Barone, hospitalist for additional evaluation and management. Administered Medications Enoxaparin Sodium (Lovenox) 40 mg SQ Q24H VAISHALI Stop: 02/11/19 10:59 Last Admin: 01/12/19 11:43 Dose: 40 mg Documented by: [id number] Sodium Chloride (Nss 1000ml) 1,000 mls @ 80 mls/hr IV .[id number] VAISHALI Stop: 02/11/19 09:56 Last Admin: 01/12/19 22:42 Dose: 80 mls/hr Documented by: [id number] Infusion: 01/12/19 22:42 Dose: 0 mls/hr Documented by: [id number] Admin: 01/12/19 10:25 Dose: 80 mls/hr Documented by: [id number] Discontinued Medications Sodium Chloride (Nss 1000ml) 1,000 mls @ 250 mls/hr IV .Q4H VAISHALI Stop: 02/11/19 02:14 Last Admin: 01/12/19 10:05 Dose: Not Given Documented by: [id number] Infusion: 01/12/19 06:29 Dose: 0 mls/hr Documented by: [id number] Admin: 01/12/19 02:30 Dose: 250 mls/hr Documented by: [id number] Sodium Chloride (Nss 1000ml) 1,000 mls @ 250 mls/hr IV .Q4H VAISHALI Stop: 02/11/19 06:14 Last Infusion: 01/12/19 10:02 Dose: 0 mls/hr Documented by: [id number] Admin: 01/12/19 06:29 Dose: 250 mls/hr Documented by: [id number] Medical Decision Making Differential Diagnosis Differential diagnosis includes: toxicologic, infection, hypoglycemia, electrolyte abnormalities, cardiac sources, intracerebral event, neurologic, as well as others were entertained. Medical Records Attestation: I reviewed the patient's medical records. Home Medications Current Medication List: was personally reviewed by me Laboratory Data Attestation: I reviewed the patient's lab results. Result diagrams: 01/12/19 02:22 01/12/19 02:22 Lab Results 01/12/19 01/12/19 01/12/19 Range/Units 02:22 02:22 02:22 WBC 11.56 H (4.8-10.8) K/uL RBC 4.71 (4.7-6.1) M/uL Hgb 15.1 (14.0-18.0) g/dL Hct 44.0 (42-52) % MCV 93.4 (80-100) fL MCH 32.1 (25-34) pg MCHC 34.3 (32-36) g/dL RDW Std Deviation 46.7 H (36.4-46.3) fL RDW Coeff of Mino 13.6 (11.5-14.5) % Plt Count 193 (130-400) K/uL MPV 10.4 (7.4-10.4) fL Immature Gran % (Auto) 0.2 % Neut % (Auto) 82.8 % Lymph % (Auto) 9.7 % [place] % (Auto) 7.0 % Eos % (Auto) 0.2 % Baso % (Auto) 0.1 % Immature Gran # (Auto) 0.02 (0.00-0.02) K/uL Neut # (Auto) 9.58 H (1.4-6.5) K/uL Lymph # (Auto) 1.12 L (1.2-3.4) K/uL [place] # (Auto) 0.81 H (0.11-0.59) K/uL Eos # (Auto) 0.02 (0-0.5) K/uL Baso # (Auto) 0.01 (0-0.2) K/uL Sodium 143 (136-145) mmol/L Potassium 3.8 (3.5-5.1) mmol/L Chloride 109 H (98-107) mmol/L Carbon Dioxide 29 (21-32) mmol/L Anion Gap 5.0 (3-11) BUN 18 (7-18) mg/dl Creatinine 1.25 (0.6-1.4) mg/dl Est Cr Clr Drug Dosing 73.0 ml/min Est GFR ( Amer) 80.7 Est GFR (Non-Af Amer) 69.6 BUN/Creatinine Ratio 14.6 (10-20) Glucose 129 H (70-99) mg/dl Calcium 9.1 (8.5-10.1) mg/dl Magnesium 2.1 (1.8-2.4) mg/dl Total Bilirubin 0.7 (0.2-1) mg/dl AST 25 (15-37) U/L ALT 18 (12-78) U/L Alkaline Phosphatase 57 (45-117) U/L Troponin I < 0.015 (0-0.045) ng/ml NT-Pro-B Natriuret Pep 19 (0-450) pg/ml Total Protein 7.3 (6.4-8.2) gm/dl Albumin 4.2 (3.4-5.0) gm/dl Globulin 3.1 (2.5-4.0) gm/dl Albumin/Globulin Ratio 1.4 (0.9-2) Lipase 152 (73-393) U/L TSH 0.777 (0.300-4.500) uIu/ml Urine Color Urine Appearance (Clear) Urine pH (4.5-7.5) Ur Specific [place] (1.000-1.030) Urine Protein (Negative) Urine Glucose (UA) (Negative) Urine Ketones (Negative) Urine Blood (Negative) Urine Nitrite (Negative) Urine Bilirubin (Negative) Urine Urobilinogen (Negative) Ur Leukocyte Esterase (Negative) Urine WBC (Auto) (0-5) /hpf Urine RBC (Auto) (0-4) /hpf U Hyaline Cast (Auto) (0-5) /lpf U Epithel Cells (Auto) (0-5) /lpf Urine Bacteria (Auto) (Negative) Ur Renal Epithelial Cell Granular Casts (0) /lpf Urine Opiates Screen (Neg) Ur Methadone, Qual (Neg) Urine Barbiturates (Neg) Ur Phencyclidine (PCP) (Neg) U Amphetamin/Meth Scrn (Neg) MDMA (Ecstasy) Screen (Neg) U Benzodiazepines Scrn (Neg) Ur Cocaine Metabolite (Neg) U Marijuana (THC) Screen (Neg) Ethyl Alcohol mg/dL < 3.0 (0-3) mg/dl Lyme Disease IgG Ab (Negative) Lyme Disease IgM Ab (Negative) 01/12/19 01/12/19 01/12/19 Range/Units 02:22 03:41 03:41 WBC (4.8-10.8) K/uL RBC (4.7-6.1) M/uL Hgb (14.0-18.0) g/dL Hct (42-52) % MCV (80-100) fL MCH (25-34) pg MCHC (32-36) g/dL RDW Std Deviation (36.4-46.3) fL RDW Coeff of Mino (11.5-14.5) % Plt Count (130-400) K/uL MPV (7.4-10.4) fL Immature Gran % (Auto) % Neut % (Auto) % Lymph % (Auto) % [place] % (Auto) % Eos % (Auto) % Baso % (Auto) % Immature Gran # (Auto) (0.00-0.02) K/uL Neut # (Auto) (1.4-6.5) K/uL Lymph # (Auto) (1.2-3.4) K/uL [place] # (Auto) (0.11-0.59) K/uL Eos # (Auto) (0-0.5) K/uL Baso # (Auto) (0-0.2) K/uL Sodium (136-145) mmol/L Potassium (3.5-5.1) mmol/L Chloride (98-107) mmol/L Carbon Dioxide (21-32) mmol/L Anion Gap (3-11) BUN (7-18) mg/dl Creatinine (0.6-1.4) mg/dl Est Cr Clr Drug Dosing ml/min Est GFR ( Amer) Est GFR (Non-Af Amer) BUN/Creatinine Ratio (10-20) Glucose (70-99) mg/dl Calcium (8.5-10.1) mg/dl Magnesium (1.8-2.4) mg/dl Total Bilirubin (0.2-1) mg/dl AST (15-37) U/L ALT (12-78) U/L Alkaline Phosphatase (45-117) U/L Troponin I (0-0.045) ng/ml NT-Pro-B Natriuret Pep (0-450) pg/ml Total Protein (6.4-8.2) gm/dl Albumin (3.4-5.0) gm/dl Globulin (2.5-4.0) gm/dl Albumin/Globulin Ratio (0.9-2) Lipase (73-393) U/L TSH (0.300-4.500) uIu/ml Urine Color Dark Yellow Urine Appearance Turbid A (Clear) Urine pH 5.0 (4.5-7.5) Ur Specific [place] 1.025 (1.000-1.030) Urine Protein 2+ H (Negative) Urine Glucose (UA) Negative (Negative) Urine Ketones Trace H (Negative) Urine Blood Negative (Negative) Urine Nitrite Negative (Negative) Urine Bilirubin Negative (Negative) Urine Urobilinogen Negative (Negative) Ur Leukocyte Esterase Negative (Negative) Urine WBC (Auto) 1-5 (0-5) /hpf Urine RBC (Auto) 0-4 (0-4) /hpf U Hyaline Cast (Auto) 1-5 (0-5) /lpf U Epithel Cells (Auto) >30 H (0-5) /lpf Urine Bacteria (Auto) Negative (Negative) Ur Renal Epithelial Cell Not Reportable Granular Casts 5-10 H (0) /lpf Urine Opiates Screen Neg (Neg) Ur Methadone, Qual Neg (Neg) Urine Barbiturates Neg (Neg) Ur Phencyclidine (PCP) Neg (Neg) U Amphetamin/Meth Scrn Neg (Neg) MDMA (Ecstasy) Screen Neg (Neg) U Benzodiazepines Scrn Pos H (Neg) Ur Cocaine Metabolite Neg (Neg) U Marijuana (THC) Screen Pos H (Neg) Ethyl Alcohol mg/dL (0-3) mg/dl Lyme Disease IgG Ab Negative (Negative) Lyme Disease IgM Ab Negative (Negative) Imaging Data Attestation: I personally reviewed and interpreted this imaging study as follows: My Impression: Chest X-ray read by me No cardiomegaly, no effusions. No wide mediastinum. No focal consolidation. No acute pulmonary edema. Left nipple piercing noted. read at 04:26 on 01/12/19 ECG Data Attestation: I personally reviewed and interpreted this ECG as follows: Indication: + toxicologic Rate (beats per minute): 95 ECG Intervals/blocks: + Normal QRS and + Normal QT ECG [place]: + Normal ECG Findings: + Other (No terminal R wave in AVR); no PACs and no PVCs Blood Pressure Blood Pressure Findings: Elevated blood pressure Blood Pressure Disposition: elevated BP felt to be situational MDM Narrative Patient presenting here with tremors, ataxia, generalized weakness, after having restarted his psychiatric medications 3 days prior. Unfortunately patient restarted them in his prior doses instead of starting at lower level doses and titrating up again. Patient does see a psychiatrist at the [facility]. Patient denies any current SI or intentional overdose today. Patient's other labs and imaging reassuring. Patient was calm and cooperative, able to answer questions of orientation appropriately, although stated he felt slow and had difficulty arriving at the correct answer. Patient was also noted to have 2 beat clonus, difficulty walking due to tremors and weakness. Patient initially tachycardic, however and quickly improved with rest and IV fluids. Patient was carefully monitored overnight over several hours before making decision regarding final disposition. While patient's condition did improve in that time, patient still had weakness, ataxia, tremors, and clonus. I suspect a component of mild serotonin syndrome given his use of Zoloft. Patient never appeared to have anticholinergic toxicity from his Seroquel. No ectopy or dysrhythmia noted on telemetry. Intervals and EKG normal. I do not suspect occult infectious etiology. Patient otherwise had a nonfocal neuro exam and I do not suspect other occult [employer] pathology. Case discussed with the hospitalist in the morning for additional inpatient evaluation and management. Patient was in agreement with this plan. Impression & Plan Serotonin syndrome, Adverse drug effect, Tremor observed on examination, Weakness, Ataxia Discharge Plan Visit Data *Final* Discharge Date/Time: 01/12/19 09:42 Chief Complaint: Illness Stated Complaint: ILL, SHAKY, NYSTAGMUS ED Provider: Ann Cam Discharge Problem: Serotonin syndrome, Adverse drug effect, Tremor observed on examination, Weakness, Ataxia Patient Disposition: Admitted As Inpatient Condition: Good Discharge Instructions Interventions: ED Discharge Assessment Last Done: 01/12/19 09:42 Discharge Problem: Adverse drug effect Qualifiers: Encounter type: initial encounter Qualified Code(s): T50.905A - Adverse effect of unspecified drugs, medicaments and biological substances, initial encounter The scribe's documentation has been prepared under my direction and personally reviewed by me in its entirety. I confirm that the note above accurately reflects all work, treatment, procedures, and medical decision making performed by me.
[2019-01-12] MEDS ORDERED: ACETAMINOPHEN 325 MG TAB PO PRN (09:57)
[2019-01-12] MEDS ORDERED: ONDANSETRON INJ 2 MG/ML 2 ML VIAL IV PRN (09:57)
[2019-01-12] MEDS: ENOXAPARIN INJ 40 MG/0.4 ML SYR SQ SCH (11:43)
[2019-01-12 11:46] LABS: Acetaminophen < 2 ug/ml (10-30); Salicylate 2.3 mg/dl (2.8-20)
--- NOTE | 2019-01-12 14:35 | History & Physical Report ---
Date of Service January 12, 2019 Assessment & Plan (1) Serotonin syndrome: Patient took at least a few sertraline and quetiapine ("the pills in the bottom of the bottle") in what appears to be an intentional overdose. Discussed with [facility] on 01/12. - Supportive care for possible serotonin syndrome: - If QTc >500, give Mg to ensure Mg > 2 - If QRS > 120 -> Give sodium bicarb - Monitor EKGs, temperature, vitals (2) Overdose: Patient took at least a few sertraline and quetiapine ("the pills in the bottom of the bottle") in what appears to be an intentional overdose. Discussed with [facility] on 01/12. ASA & acetaminophen levels were both normal on admission. - Follow for signs of benzo withdrawal. He denies any use, but tox screen was positive. - Recheck ASA & acetaminophen levels in 6 hours to be sure they are not going up. - Supportive care for possible serotonin syndrome as above - Suicide precautions - Psychiatry consult (3) Depression: As above (4) DVT prophylaxis: Lovenox 40mg SC daily History of Present Illness Primary Care Provider: NO PCP 43yo M w/ hx of psychiatric issues who presents with possible medication overdose and self-harm attempt. Per report, he was found sleeping in the parking lot of a gas station. The attendants called paramedics/police. Again per report, he told them that he had restarted some home medications that he hadn't taken for several weeks and that it must have made him drowsy. He was brought to the ED and almost discharged, but he was just a bit too tired/lethargic, so admission consult was called. To me, he reports he took at least "a few at the bottle of the bottle" in regards to both his sertraline and quetiapine, though for the quetiapine, he is also reluctant to even give me a general dose, not really denying that he could have taken alot more. He also has no real concept of date, saying he maybe took them "yesterday," but then thinking today is Monday instead of Monday. He also admits that he is undergoing a lot of stress in his job and that he may have taken the medication to hurt himself. He is a terrible historian and can't even really tell me who prescribes his medications. [facility] he [facility] then [facility] Eventually, he says he spoke with someone from [place] over video conference who then sent prescriptions to the [facility] to [employer] material [employer]. It's unclear if this [facility] prescriber is through the [facility] or some other facility. He denies any benzodiazepine use, though he does have a positive tox for benzos and THC. He does admit to smoking some amount of marijuana. At present, he reports tremor, but otherwise denies any other symptoms. Allergies Allergy/AdvReac Type Severity Reaction Status Date / Time No Known Allergies Allergy Verified 01/12/19 03:28 Home Medications Home Medications Medication Instructions Recorded Confirmed Type quetiapine 400 mg PO HS 01/12/19 01/12/19 History sertraline 100 mg PO DAILY 01/12/19 01/12/19 History Past Med/Surg History Medical History Depression Intentional diphenhydramine overdose Surgical History No pertinent past surgical history Family History Father Hypertension Gout Other No pertinent family history in first degree relatives Social History Preferred Language: Rwandan Communication Ability: Effective Beliefs That Will Affect Care: None Current Living Situation: Other Current Living Situation Comment: roommates Other Information That Helps Us Care for You: No Feels Safe at Home: Yes Safety Concerns: Feels Safe At This Time Smoking Status: Current every day smoker Tobacco Type: cigarettes ; Cigarettes Per Day: 20 ; Hx Alcohol Use: No Hx Substance Use: Yes substance use type: marijuana Last Used Substance: Days (ago) Review of Systems Review of Systems: All systems reviewed & are unremarkable except as noted in HPI & below Physical Exam Constitutional: WD/WN, vitals as above + acute distress, + intoxicated appearing and cooperative Eyes: EOM intact bilaterally; no conjunctival abnormality ENMT: external ear and nose normal, oropharynx normal Neck: trachea midline, no thyromegaly normal visual inspection Respiratory: normal respiratory effort, lungs clear to auscultation no respiratory distress Cardiovascular: RRR, no murmur, no edema Gastrointestinal (Abdomen): Inspection/Auscultation: abdomen normal to inspection; abdomen not distended Musculoskeletal: no cyanosis or clubbing, extremities motor strength 5/5 Skin: no rashes, warm and dry Neurologic: moves all extremities, awake and + confused; no meningeal signs Motor/Sensory: + tremor (Mild clonus in feet bilaterally) Psychiatric: Orientation: alert, oriented to person and cooperative Results & Data Vital Signs (Past 12 Hours) Vital Signs Pulse Resp BP Pulse Ox 01/12/19 09:30 89 17 134/93 97 01/12/19 09:00 86 18 129/88 99 01/12/19 08:00 88 16 133/90 98 01/12/19 07:37 101 H 16 157/93 H 98 01/12/19 06:31 86 9 L 158/102 H 99 01/12/19 06:30 92 H 15 97 01/12/19 06:01 89 15 156/93 H 01/12/19 06:00 100 H 19 01/12/19 05:31 88 18 01/12/19 05:30 90 33 H 138/96 98 01/12/19 05:01 87 10 L 145/102 H 01/12/19 05:00 85 7 L 01/12/19 04:39 92 H 19 173/104 H 01/12/19 04:31 83 15 97 01/12/19 04:30 89 18 154/99 H 97 01/12/19 04:01 93 H 27 H 97 01/12/19 04:00 90 18 136/98 97 01/12/19 03:43 75 18 182/113 H 97 01/12/19 03:31 87 14 99 01/12/19 03:30 89 15 154/90 H 98 01/12/19 03:01 88 16 98 01/12/19 03:00 91 H 19 139/89 98 01/12/19 02:41 94 H 21 01/12/19 02:40 87 15 143/97 H 100 Code Status & VTE Plan VTE Prophylaxis Plan VTE Prophylaxis will be ordered: Yes PG Care Time/CCT Total # of Minutes Spent Total Time Spent with Patient: Total time spent is greater than 50% in coordination of care (as documented) at patient's floor/unit and/or counseling patient:
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
[2019-01-12 17:45] LABS: Salicylate 2.2 mg/dl (2.8-20)
[2019-01-13 08:06] LABS: Hematocrit (blood only) 38.5 % (42-52); Hemoglobin 12.9 g/dL (14.0-18.0); Mean Corpuscular Hemoglobin 31.9 pg (25-34); Mean Corpuscular Hgb Conc 33.5 g/dL (32-36); Mean Corpuscular Volume 95.1 fL (80-100); Mean Platelet Volume 9.8 fL (7.4-10.4); Platelet Count 171 K/uL (130-400); RDW Coefficient of Variation 13.4 % (11.5-14.5); RDW Standard Deviation 46.9 fL (36.4-46.3); Red Blood Count 4.05 M/uL (4.7-6.1); White Blood Count 4.83 K/uL (4.8-10.8)
[2019-01-13 08:19] LABS: Albumin Level 3.1 gm/dl (3.4-5.0); BUN Creatinine Ratio 13.3 (10-20); Calcium 8.3 mg/dl (8.5-10.1); Creatinine Clr Calc Pharmacy 91.2 ml/min; Est GFR (African American) 105.6; Est GFR (Non-African American) 91.1; Magnesium 1.9 mg/dl (1.8-2.4); Potassium 4.2 mmol/L (3.5-5.1)
[2019-01-13 08:29] LABS: Albumin Globulin Ratio 1.2 (0.9-2); Bilirubin,Total 0.5 mg/dl (0.2-1); Globulin 2.7 gm/dl (2.5-4.0); Phosphorus 3.3 mg/dl (2.5-4.9); Total Protein 5.8 gm/dl (6.4-8.2)
[2019-01-13] MEDS: ENOXAPARIN INJ 40 MG/0.4 ML SYR SQ SCH (09:52)
[2019-01-13] MEDS: SODIUM CHLORIDE 0.9% 1000ML 1,000 ML IV SCH (11:31)
--- NOTE | 2019-01-13 12:08 | Hospitalist Progress Note ---
Date of Service January 13, 2019 Assessment & Plan (1) Ataxia: Reports feeling dizzy and wobbly on his feet. Proprioception tested on 01/13 and was normal to my exam. - B12 normal - If continues after he has had time to metabolize sertraline and quetiapine, consider further testing. (2) Serotonin syndrome: Patient took at least a few sertraline and quetiapine ("the pills in the bottom of the bottle") in what appears to be an intentional overdose. Discussed with [facility] on 01/12. - Supportive care for possible serotonin syndrome: - If QTc >500, give Mg to ensure Mg > 2 - If QRS > 120 -> Give sodium bicarb - Monitor EKGs, temperature, vitals (3) Overdose: Patient took at least a few sertraline and quetiapine ("the pills in the bottom of the bottle") in what appears to be an intentional overdose. Discussed with [facility] on 01/12. ASA & acetaminophen levels were both normal on admission. - Follow for signs of benzo withdrawal. He denies any use, but tox screen was positive. - Supportive care for possible serotonin syndrome as above - Suicide precautions - Psychiatry consult - Cannot leave AMA. Likely inpatient psych placement on discharge. (4) Depression: As above (5) DVT prophylaxis: Lovenox 40mg SC daily Subjective Less shaky today, though he continues to report dizziness and some unsteadiness on his feet. Reports no fevers/chills, chest pain, shortness of breath, abdominal pain, nausea, or vomiting. Physical Exam Constitutional: WD/WN, vitals as above + disheveled and cooperative Eyes: EOM intact bilaterally; no conjunctival abnormality ENMT: external ear and nose normal, oropharynx normal Neck: trachea midline, no thyromegaly normal visual inspection Respiratory: normal respiratory effort, lungs clear to auscultation no respiratory distress Cardiovascular: RRR, no murmur, no edema Gastrointestinal (Abdomen): Inspection/Auscultation: abdomen normal to inspection; abdomen not distended Musculoskeletal: no cyanosis or clubbing, extremities motor strength 5/5 Skin: no rashes, warm and dry Neurologic: moves all extremities, awake and + confused; no meningeal signs Motor/Sensory: + tremor (Mild tremor in hands bilaterally); no sensory deficit (No light touch or proprioception deficit) Psychiatric: Orientation: alert, oriented to person and cooperative Results & Data Vital Signs (Past 12 Hours) Vital Signs Temp Pulse Resp BP BP Pulse Ox 01/13/19 11:12 37 C 61 16 119/74 98 01/13/19 07:05 36.3 C L 61 16 118/70 99 01/13/19 03:43 37 C 18 108/66 96 01/13/19 00:30 36.8 C 65 18 110/75 97 PG Care Time/CCT Total # of Minutes Spent Total Time Spent with Patient: Total time spent is greater than 50% in coordinat ion of care (as documented) at patient's floor/unit and/or counseling patient:
[2019-01-13 13:45] LABS: Folate (Folic Acid) 4.62 ng/ml (>5.38)
[2019-01-13] MEDS ORDERED: LORazepam 1 MG TAB PO PRN (14:18)
[2019-01-14] MEDS: ENOXAPARIN INJ 40 MG/0.4 ML SYR SQ SCH (08:29)
[2019-01-14] MEDS ORDERED: FOLIC ACID 1 MG TAB PO SCH (09:00)
--- NOTE | 2019-01-14 13:04 | Discharge Summary ---
Date of Service January 14, 2019 Admission HPI Per Admitting Provider Per admission H&P: 43yo M w/ hx of psychiatric issues who presents with possible medication overdose and self-harm attempt. Per report, he was found sleeping in the parking lot of a gas station. The attendants called paramedics/police. Again per report, he told them that he had restarted some home medications that he hadn't taken for several weeks and that it must have made him drowsy. He was brought to the ED and almost discharged, but he was just a bit too tired/lethargic, so admission consult was called. To me, he reports he took at least "a few at the bottle of the bottle" in regards to both his sertraline and quetiapine, though for the quetiapine, he is also reluctant to even give me a general dose, not really denying that he could have taken alot more. He also has no real concept of date, saying he maybe took them "yesterday," but then thinking today is Monday instead of Monday. He also admits that he is undergoing a lot of stress in his job and that he may have taken the medication to hurt himself. He is a terrible historian and can't even really tell me who prescribes his medications. Initially he says "[facility]," then the [facility]. 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 It's unclear if this [facility] prescriber is through the [facility] or some other facility. He denies any benzodiazepine use, though he does have a positive tox for benzos and THC. He does admit to smoking some amount of marijuana. At present, he reports tremor, but otherwise denies any other symptoms. He is being treated with supportive care for possible serotonin syndrome with monitoring of EKGs and vitals. Poison control has been contacted. He did have a positive benzodiazepine screen on presentation and being monitored for evidence of withdrawal. He is on suicide precautions with one-to-one sitter. On psychiatric interview patient is found to be a difficult historian. He becomes easily frustrated with paraphasic errors and nonlinear thought process. He acknowledges that his overdose was a suicide attempt and does not clearly answer repeated attempts to identify if he is still actively suicidal. He does state that he feels safe here in the hospital. "Because there are cameras and lozada pads, I feel like I am safe." There is a flavor of paranoia and he describes feeling persecuted at work and hypersensitive to negative comments of others to the degree that may well be delusional. As example, he describes on the day of his overdose that a woman made a comment that she knows what bad people look like which seemingly was very distressing for him. He states that his suicidality came on abruptly and immediately appears angry and almost yells "I hate breaking promises, I told my little sister I would not do this anymore." He cannot provide much detail about the amount of medication that he took. He reports Seroquel was 400 mg tablets and Zoloft 100s and 50s (reports home dose of these medications was 200 mg of Seroquel at bedtime and 150 mg of Zoloft per day but had not been taking them for unquantified period of time) but cannot quantify how much of the medication he took. When queried about why he stopped and started his medicines again he again appears paranoid and states that he does not want to talk about it because every time he talks about things it causes him problems. Presently he describes feeling confused, shaky. He demonstrates a diffuse tremor, myoclonic jerks, and restlessness. Admission Exam Per Admitting Provider Constitutional: WD/WN, vitals as above + acute distress, + intoxicated appearing and cooperative Eyes: EOM intact bilaterally; no conjunctival abnormality ENMT: external ear and nose normal, oropharynx normal Neck: trachea midline, no thyromegaly normal visual inspection Respiratory: normal respiratory effort, lungs clear to auscultation no respiratory distress Cardiovascular: RRR, no murmur, no edema Gastrointestinal (Abdomen): Inspection/Auscultation: abdomen normal to inspection; abdomen not distended Musculoskeletal: no cyanosis or clubbing, extremities motor strength 5/5 Skin: no rashes, warm and dry Neurologic: moves all extremities, awake and + confused; no meningeal signs Motor/Sensory: + tremor (Mild clonus in feet bilaterally) Psychiatric: Orientation: alert, oriented to person and cooperative Principal Diagnosis 1. SSRI and Seroquel overdose, consider serotonin sickness 2. Major depression Discharge Exam Gen: AAOx3, NAD HEENT: neck supple, no JVD. MMM. Heart: RR, no murmurs Lungs: clear to auscultation in all vazquez Abd: soft, nontender, nondistended. Normal BS Neuro: awake, alert. Nonfocal Psych: Calm, does have somewhat bizarre affect Ext: No clubbing, cyanosis, edema Discharge Data Allergies Allergy/AdvReac Type Severity Reaction Status Date / Time No Known Allergies Allergy Verified 01/12/19 03:28 Consultations 01/12/19 08:06 ED Decision to Admit Stat 01/12/19 09:57 Consult Case Management - Discharge Planning Routine Consult Psychiatry Routine Hospital Course (1) Ataxia: Seems to be resolved per patient. May have been from medications. (2) Serotonin syndrome: Patient took at least a few sertraline and quetiapine ("the pills in the bottom of the bottle") in what appears to be an intentional overdose. Discussed with [facility] on 01/12. - Supportive care for possible serotonin syndrome: - If QTc >500, give Mg to ensure Mg > 2 - If QRS > 120 -> Give sodium bicarb -Serial EKGs were performed, patient did not have any evidence of cardiac abnormality as detailed above. (3) Overdose: Patient took at least a few sertraline and quetiapine ("the pills in the bottom of the bottle") in what appears to be an intentional overdose. Discussed with [facility] on 01/12. ASA & acetaminophen levels were both normal on admission. - Follow for signs of benzo withdrawal. He denies any use, but tox screen was positive. - Supportive care for possible serotonin syndrome as above - Suicide precautions - Psychiatry saw the patient and recommended inpatient behavioral health. [facility]. (4) Depression: As above (5) DVT prophylaxis: Lovenox 40mg SC daily Total Time Total Time Spent Total Time Spent (In Minutes): Discharge patient took in excess of 30 minutes. Total Time Includes: Examination of the Patient, Discharge Planning, Medication Reconciliation and Communication With Other Providers Discharge Plan Discharge Items Patient Disposition: Transfer [facility] Reason For Visit: MEDICATION OVERDOSE Discharge Diagnosis: 1. SSRI and Seroquel overdose, intentional 2. Major depression Condition on Discharge: Good Activity: Per Instructions section Bathing: No limitations Weightbearing: Full weightbearing Non-emergency contact: Primary Care Provider and Psychiatrist Call non-emergency contact if: you have any medication questions and your symptoms worsen Follow-up/Referrals: PCP,NO [Primary Care Provider] - Diet: Regular Addtl Attending Provider Instructions: Patient be transferred to the [facility] inpatient [facility]. Patient will need outpatient PCP and routine medical and psychiatric follow-up after discharge. Pending Studies at Discharge: No Stand-Alone Forms: My [employer] Skilled Items Patient informed of condition?: Yes DNR: No Discharge Level of Care: Other Communicable Disease: No Discharge Prognosis: Stable Lines: None Urinary Catheter: No Medications and DC Order Prescriptions: New lorazepam 1 mg Tablet 1 mg PO Q4H PRN (Reason: agitation) Qty: 30 RF: 0 folic acid 1 mg Tablet 1 mg PO QAM Qty: 30 RF: 0 Continued sertraline 100 mg Tablet 100 mg PO DAILY RF: 0 quetiapine 400 mg Tablet 400 mg PO HS RF: 0 Discharge Orders: Discharge Order (Routine); Ordered 01/14/19 Ordered By: Loyd Jones Admission Data Admit Date/Time: 01/14/19 10:31 Attending Provider: Loyd Jones Admit Provider: Gaurang Barone Primary Care Provider: PCP,NO Other Providers: Gaurang Barone ; Melissa Sin
[2019-01-15 12:04] LABS: Marijuana Quant, GCMS Urine 17
[2019-01-15 12:05] LABS: Lorazepam, Ur GC/MS NEGATIVE; Oxazepam Ur, GC/MS NEGATIVE
[2019-01-15 12:06] LABS: Hydro-Alp Ur, GC/MS NEGATIVE; Hydroxytriazolam NEGATIVE; Nordiazepam, Confirm NEGATIVE
[2019-01-15 12:07] LABS: Hydroxyethylflurazepam, Conf NEGATIVE; Temazepam, Confirm NEGATIVE
[2019-01-15 12:09] LABS: 7-Aminoclonaz, Confirm NEGATIVE
== END 2019-01-14 19:23 | DRG 918 ==
LOC: 2W 01:54 → ED 01:54 → SUATTDRO 09:11 → 2W 09:42